=== PATIENT | female | born 1955 | race Two or more races ===

== ENCOUNTER 2024-09-21 08:15 | Day surgery (SDC) | payer MEDICAID, SELFPAY ==
[2024-09-21] VITALS (10 sets, daily range): BP systolic 146–187; BP diastolic 83–104; PULSE 80–99; RESP 15–27; TEMP 36.7–37.1; O2SAT 92–100; BMI 26.7
[2024-09-21] MEDS: MIDAZOLAM INJ 1 MG/ML VIAL 2 ML (ASD USE ONLY) 2 MG IV (09:25)
[2024-09-21] MEDS: fentaNYL CIT INJ 50 mCg/ML AMP 2ML (ASD USE ONLY) IV (09:25)
[2024-09-21] MEDS: DiphenhydrAMINE INJ 50 MG/ML VIAL 25 MG IV (09:25)
--- NOTE | 2024-09-21 11:49 | SUR.PHASEII ---
0955: Pt received for recovery. Report from Karlene RN. Pt groggy, but awake. Resp even, unlabored. VS stable. Denies pain. 1025: Pt more awake, alert. Sitting up tolerating po fluids with no difficulty swallowing and no n/v. 1030: Pt fully awake, oriented x3. Pt assisted to restroom. Ambulation steady. Pt passing flatus. 1100: Pt out of restroom. Pt and daughter stated understanding of discharge instructions via freelance interpreter/translator. Pt discharged from [facility] in stable condition.
== END 2024-09-21 11:00 | disposition home or self-care (01) ==
PROVIDERS: PCP Nurse Practitioner Family; Referring Provider Surgery; Visit Provider Surgery
PROC: 0DBE8ZX Excision of Large Intestine, Via Natural or Artificial Opening Endoscopic, Diagnostic (ICD-10-PCS; CPT 45380; principal; 2024-09-21 10:00)
DX: Z12.11 Encounter for screening for malignant neoplasm of colon (principal); D12.3 Benign neoplasm of transverse colon; D12.8 Benign neoplasm of rectum; K64.8 Other hemorrhoids
CPT/HCPCS: 45385; A4649; J1200; J2250; J3010

== ENCOUNTER 2024-09-27 14:19 | Outpatient (AMB) | payer MEDICAID, SELFPAY ==
[2024-09-27 14:28] VITALS: BP 148/73; PULSE 80; RESP 19; TEMP 36.1; O2SAT 95; BMI 26.9
[2024-09-27 14:30] VITALS: BP 148/73; PULSE 80; RESP 19; TEMP 36.1; O2SAT 95
--- NOTE | 2024-09-27 14:30 | GSCOFFNT_ITS ---
Vital Signs - [facility] 09/27/24 14:28 09/27/24 14:30 Height 1.52 m Height Method Stated Weight 62.227 kg Weight Measurement Method Standing Scale BMI 26.9 BP 148/73 H 148/73 H Blood Pressure Source Automatic Cuff Blood Pressure Location Left Upper Arm Position Sitting Respiration 19 19 Pulse 80 80 Pulse Source Monitor Temp 97.0 F 97.0 F Temp Source Temporal Artery Scan Pulse Oximetry (%) 95 95 Oxygen Delivery Method Room Air Med/Allergies Allergies & Medications Allergies No Known Allergies Allergy (Verified 09/27/24 14:29) Medication Reconciliation Unobtainable 09/21/24 [History Confirmed 09/27/24] MA Intake Visit Data Collection New Patient or Established: Established Patient (seen at [facility] within 3 years) Seen by Clinical Staff ONLY (RN/MA): No Reason for Visit:: COLONOSCOPY F/U Pain Present Currently: No Plant Supervisor Required: Yes PCP or OBGYN visit in last 3 months: Yes Hx Now: No Do You Feel Safe at Home: Yes Authorities Contacted: N/A Smoking Status Smoking Status: Never smoker Immunization / Flu Flu Vaccine in the Last 12 Months: No Flu Vaccine Exclusion Criteria: No Exclusion Criteria Past Medical History Past Medical History NEUROLOGIC: Negative Neurological Disorders or Seizures CARDIAC: Positive Cardiac Disorders, Hypercholesterolemia (NO MEDS FOR 3 MONTHS) and Hypertension (NO MEDS FOR 3 MONTHS); Negative Congestive Heart Failure RESPIRATORY: Negative Chronic Obstructive Pulmonary Disease (COPD) GASTROINTESTINAL: Negative Gastrointestinal Disorders or Hepatitis GENITOURINARY: Negative Genitourinary Disorders or Renal Disease REPRODUCTIVE: Positive Previous Pregnancies ENDOCRINE: Positive Endocrine Disorders and Diabetes Mellitus Type 2; Negative Diabetes Mellitus Type 1 HEMATOLOGIC: Negative Blood Disorders OTHER HISTORY: Positive Chicken Pox, Measles and Mumps; Negative Falls, Blood Transfusions, Blood Transfusion Reaction, Anesthesia Reactions, MRSA or Cancer Social History SMOKING STATUS: Smoking status: Never smoker ALCOHOL: Alcohol Intake: Never HOUSING: Housing: House HPI HPI Narrative Spoke to pt with in-person associate biological sales 69F s/p screening colonoscopy 09/21 here for planned follow up. Pt reports feeling well overall with no complaints ROS Review of Systems Systems Reviewed: All systems reviewed, normal except as documented Objective/Exam General General Appearance: alert, cooperative and well groomed Resp Respiratory exam: Absent respiratory distress Results Colonoscopy report reviewed: polyp in rectum and transverse colon Pathology report reviewed: inflammatory polyp in transverse colon and TVA 1.6cm in rectum Assessment & Plan Diagnosis / Problem List (1) Encounter to discuss colonoscopy results: Status: Acute Assessment & Plan: 69F s/p screening colonoscopy 09/21/24 with findings of 1.6cm TVA in rectum. I explained with an associate biological sales that she should undergo surveillance colonoscopy in 3 years, and that the clips I placed at the resection site will likely fall off in their own in a matter of weeks to months. All questions were answered and pt expressed understanding Advanced Care Planning Advance care planning discussed with:: patient Office Procedures GNS Level of Care Nursing/Assessment Patient Status: Established Patient Nursing Assessment/Reassesment: Medication Reconciliation, Update PMH in EMR and Vital Signs Coordination of Care: Complex Care and Chronic Disease 1-5, Consent,records obtained, informed consent, Education Simp Pt/Fam, Results/Orders obtained and Staff clarify orders Special Needs: Language special needs Established Patient Charge Established Patient Point Assignment: 90 Established Patient Point Charge: EP Level 3 (80-115) Patient Portal Questionaires Social History Living Situation History Housing: House Tobacco History Smoking Status: Never smoker Alcohol History Alcohol Intake: Never Domestic Abuse History Do You Feel Safe at Home: Yes Review of Systems Report any current symptoms Only answer those that you have currently: Past Medical History Past Medical History Have you ever been diagnosed with any of the following: Neurological Problems Seizures: No Cardiology Problems Hypercholesterolemia: Yes (NO MEDS FOR 3 MONTHS) Congestive Heart Failure: No Hypertension: Yes (NO MEDS FOR 3 MONTHS) Respiratory Problems Chronic Obstructive Pulmonary Disease (COPD): No Stomache/Intestinal Problems Hepatitis: No Genital/Urinary Problems Renal Disease: No Reproductive Problems Previous Pregnancies: Yes Endocrine Problems Diabetes Mellitus Type 1: No Diabetes Mellitus Type 2: Yes Other Problems Falls: No Blood Transfusions: No Blood Transfusion Reaction: No Anesthesia Reactions: No MRSA: No Chicken Pox: Yes Measles: Yes Mumps: Yes Cancer: No
== END 2024-09-27 15:01 | disposition home or self-care (01) ==
PROVIDERS: PCP Nurse Practitioner Family; Referring Provider Nurse Practitioner Family; Supervising Provider Surgery; Visit Provider Surgery
DX: Z71.2 Person consulting for explanation of examination or test findings (principal); K63.5 Polyp of colon; K62.1 Rectal polyp
CPT/HCPCS: 99213; G0463